=== PATIENT | female | born 1980 | race Caucasian/White ===

== ENCOUNTER 2016-07-24 21:24 | Emergency (ER) | payer MEDICAID, OTHER ==
[~2016-07-24] VITALS: Ht 162.6 cm; Wt 63.5 kg
[2016-07-24 21:24] VITALS: BP 138/78
[2016-07-25] MEDS ORDERED: AUGM875T27 PO (21:25)
[2016-07-25] MEDS ORDERED: FLON1SPR (21:25)
[2016-07-25] MEDS ORDERED: MUCI600T34 PO (21:25)
[2016-07-25] MEDS ORDERED: IBUP600T26 PO (21:25)
== END 2016-07-25 01:20 | disposition left against medical advice (07) ==
LOC: M ED 07-25 00:14
DX: R68.89 Other general symptoms and signs (principal); Z53.21 Procedure and treatment not carried out due to patient leaving prior to being seen by health care provider

== ENCOUNTER 2016-07-25 19:47 | Emergency (ER) | payer MEDICAID ==
[~2016-07-25] VITALS: Ht 162.6 cm; Wt 65.8 kg
[2016-07-25] MEDS ORDERED: AUGM875T27 PO (21:25)
[2016-07-25] MEDS ORDERED: FLON1SPR (21:25)
[2016-07-25] MEDS ORDERED: IBUP600T26 PO (21:25)
[2016-07-25] MEDS ORDERED: MUCI600T34 PO (21:25)
[2016-07-25] MEDS ORDERED: IBUPROFEN 600 MG TAB PO ONE (21:30)
[2016-07-25] MEDS ORDERED: AUGMENTIN 875 MG TAB PO ONE (21:30)
[2016-07-25 21:34] VITALS: BP 123/56
== END 2016-07-25 21:35 | disposition home or self-care (01) ==
LOC: M ED 20:55
DX: J01.00 Acute maxillary sinusitis, unspecified (principal); F17.200 Nicotine dependence, unspecified, uncomplicated

== ENCOUNTER 2017-08-10 18:25 | Emergency (ER) | payer SELFPAY, MEDICAID | END 2017-08-10 20:45 | disposition home or self-care (01) | LOC: M ED 18:25 | DX: R60.0 Localized edema (principal); S70.12XA Contusion of left thigh, initial encounter; X58.XXXA Exposure to other specified factors, initial encounter; Y92.89 Other specified places as the place of occurrence of the external cause; Z91.81 History of falling; F17.210 Nicotine dependence, cigarettes, uncomplicated; Z88.5 Allergy status to narcotic agent | CPT/HCPCS: 73552 ==

== ENCOUNTER 2018-04-17 19:12 | Emergency (ER) | payer MEDICAID, OTHER, SELFPAY ==
[~2018-04-17] VITALS: Ht 162.6 cm; Wt 61.2 kg
[~2018-04-17 19:12] MED LIST: AUGM875T28 PO; FLON1SPR; IBUP-1022 PO; MUCI600T37 PO
[2018-04-17] MEDS ORDERED: KETOROLAC 30 MG/ML VIAL (J1885) IV ONE (20:15)
[2018-04-17 20:49] LABS: BASO % 0.2 % (0.0-1.0); EOS # 0.1 10^3/uL (0.0-0.50); EOS % 1.4 % (0.0-3.0); HEMATOCRIT 42.3 % (36.0-47.0); HEMOGLOBIN 14.7 g/dl (12.0-15.5); LYMPH # 2.5 10^3/uL (1.5-4.5); LYMPH % 30.5 % (24.0-44.0); MEAN CORPUSCULAR HEMOGLOBIN 33.3 pg (27.0-33.0); MEAN CORPUSCULAR HGB CONC 34.8 g/dl (32.0-36.5); MEAN CORPUSCULAR VOLUME 95.9 fl (80.0-96.0); MONO # 0.4 10^3/uL (0.0-0.8); MONO % 5.3 % (0.0-5.0); NEUTROPHILS # 5.2 10^3/uL (1.8-7.7); NEUTROPHILS % 62.2 % (36.0-66.0); PLATELET COUNT, AUTOMATED 253 10^3/uL (150-450); RED BLOOD COUNT 4.41 10^6/uL (4.00-5.40); WHITE BLOOD COUNT 8.3 10^3/uL (4.0-10.0)
[2018-04-17 21:08] LABS: BLOOD UREA NITROGEN 4 MG/DL (7-18); CALCIUM LEVEL 8.9 MG/DL (8.5-10.1); CARBON DIOXIDE LEVEL 28 MEQ/L (21-32); CHLORIDE LEVEL 107 MEQ/L (98-107); CREATININE FOR GFR 0.59 MG/DL (0.55-1.30); GLOMERULAR FILTRATION RATE > 60.0 (>60); GLUCOSE, FASTING 82 MG/DL (70-100); SODIUM LEVEL 139 MEQ/L (136-145)
[2018-04-17] MEDS ORDERED: KETO10TAB PO (23:27)
[2018-04-17 23:52] VITALS: BP 119/79
--- NOTE | 2018-04-18 08:27 | REP ---
Pelvic sonography: Repeat dictation. Preliminary report is provided by [facility]. History: Left pelvic pain. Findings: Transabdominal and transvaginal scanning is performed. Uterine dimensions are normal at 7.1 x 4.5 x 5.7 cm. Endometrial echo is 0.8 cm thick. Uterus is somewhat retroverted. There is a small quantity of cul-de-sac fluid. A normal right ovary is seen with measurements of 3.2 x 1.6 x 1.7 cm. Its Doppler flow is normal. Resistive index of 0.60. The left ovary measures 5.1 x 2.3 x 3.1 cm. Its Doppler flow is normal, resistive index is 0.56. There are two septated cysts in the left ovary, the largest of which measures 2.0 cm. This contains a thin septation. These are compatible with follicle cysts. Impression: Somewhat retroverted uterus. No significant morphologic abnormality. Electronically Signed by Remi Christopher MD 04/18/2018 01:25 P
== END 2018-04-18 | disposition home or self-care (01) ==
LOC: M ED 19:12
DX: N83.202 Unspecified ovarian cyst, left side (principal)
CPT/HCPCS: 76830; 76856; 80048; 81001; 81025; 85025; 93976; 99284; J1885

== ENCOUNTER 2018-06-19 12:12 | Day surgery (SDC) | payer OTHER ==
[2018-06-19] VITALS (7 sets, daily range): BP systolic 115–131; BP diastolic 71–82
[~2018-06-19] VITALS: Ht 162.6 cm; Wt 61.0 kg
[~2018-06-19 12:12] MED LIST changes: +KETO10TAB PO; +LR 1,000 ML IV ONE; +NICO21DI31; +STOO100C PO; +SUBO8MIS PO; +VENL37.598
[2018-06-19 12:38] LABS: HEMATOCRIT 46.3 % (36.0-47.0); HEMOGLOBIN 15.9 g/dl (12.0-15.5); MEAN CORPUSCULAR HEMOGLOBIN 33.5 pg (27.0-33.0); MEAN CORPUSCULAR HGB CONC 34.3 g/dl (32.0-36.5); MEAN CORPUSCULAR VOLUME 97.5 fl (80.0-96.0); PLATELET COUNT, AUTOMATED 324 10^3/uL (150-450); RED BLOOD COUNT 4.75 10^6/uL (4.00-5.40); WHITE BLOOD COUNT 9.6 10^3/uL (4.0-10.0)
[2018-06-19] MEDS ORDERED: SCOPOLAMINE 1MG TRANSDERMAL PATCH As Ordered ONE (13:35)
[2018-06-19] MEDS ORDERED: SCOPOLAMINE 1MG TRANSDERMAL PATCH TOP ONE (13:45)
[2018-06-19] MEDS ORDERED: BUPIVACAINE HCL 0.25% 10 ML VIAL As Ordered ONE (13:47)
[2018-06-19] MEDS ORDERED: METHYLENE BLUE 0.5% (5MG/ML) 10 ML AMP (PROVAYBLUE)(Q9968 PER 1MG) As Ordered ONE (13:47)
[2018-06-19] MEDS: fentaNYL 100 MCG/2 ML INJECTION (J3010) IV PRN ×4 (14:09→16:28)
[2018-06-19] MEDS ORDERED: MIDAZOLAM INJ 2 MG/2 ML VIAL (J2250) As Ordered ONE (14:46)
[2018-06-19] MEDS ORDERED: dexameTHASONE 4 MG/ML 1ML VIAL (J1100) As Ordered ONE (14:46)
[2018-06-19] MEDS ORDERED: LIDOCAINE 2% INJ 100 MG/5 ML SDV (FOR ANES.) As Ordered ONE (14:46)
[2018-06-19] MEDS ORDERED: ONDANSETRON 4MG/2ML VIAL (J2405) As Ordered ONE (14:46)
[2018-06-19] MEDS ORDERED: METOCLOPRAMIDE INJ 10MG/2ML VIAL (J2765) As Ordered ONE (14:46)
[2018-06-19] MEDS ORDERED: PROPOFOL 200 MG/20 ML VIAL As Ordered ONE (14:46)
[2018-06-19] MEDS ORDERED: ROCURONIUM BROMIDE 50 MG/5 ML VIAL As Ordered ONE ×2 (14:46→14:53)
[2018-06-19] MEDS ORDERED: KETOROLAC 60 MG/2 ML VIAL (J1885) As Ordered ONE (14:46)
[2018-06-19] MEDS ORDERED: fentaNYL 250 MCG/5 ML INJECTION (J3010) As Ordered ONE (14:46)
[2018-06-19] MEDS ORDERED: SUGAMMADEX SODIUM 500 MG/5 ML VIAL (BRIDION) As Ordered ONE (14:46)
[2018-06-19] MEDS ORDERED: HYDROmorphone HCL 2 MG/ML 1ML VIAL (J1170) As Ordered ONE (14:58)
[2018-06-19] MEDS ORDERED: ACETAMINOPHEN 1000MG 100ML IV BTL (OFIRMEV) (J0131 PER 10MG) As Ordered ONE (15:40)
[2018-06-19] MEDS ORDERED: LR 1,000 ML IV SCH ×2 (16:15→16:30)
[2018-06-19] MEDS ORDERED: fentaNYL 100 MCG/2 ML INJECTION (J3010) As Ordered ONE (16:15)
[2018-06-19] MEDS ORDERED: ONDANSETRON 4MG/2ML VIAL (J2405) IV PRN (16:30)
--- NOTE | 2018-06-19 16:57 | RO ---
DATE OF PROCEDURE: 06/19/2018 PREPROCEDURE DIAGNOSIS: Pelvic pain, menorrhagia. POSTPROCEDURE DIAGNOSIS: Pelvic pain, menorrhagia. OPERATIVE PROCEDURES: Robotic assisted laparoscopic hysterectomy, left salpingo-oophorectomy, cystoscopy. SURGEON: Jeremie Shirley MD B[employer] CELL[employer] HELPER MACHINE: Lisa Herrera NP ANESTHESIA: General endotracheal. ESTIMATED BLOOD LOSS: 100 mL URINE OUTPUT: 100 mL FINDINGS: Normal uterus, fallopian tubes and ovaries. Evidence of prior tubal sterilization. Normal upper abdomen. OPERATIVE SUMMARY: Patient taken to the operating room where general endotracheal anesthesia was induced. She was prepped and draped in a sterile fashion in the dorsal lithotomy position. A [place] catheter was placed. A VCare unit manipulator was placed. Periumbilical incision was made with a scalpel. A Veress needle was placed through this incision while tenting up on the skin of the abdomen. Intraabdominal location of the Veress needle was assessed using saline filled syringe. Pneumoperitoneum was created. The Veress needle was removed. An 8 mm trocar using [employer] was inserted through this incision. Three 8 mm suprapubic ports were placed under direct visualization. The patient was placed in Trendelenburg position. The Da Ingrid robot was docked to the ports. Using the fenestrated bipolar and the Vessel Sealer the left IP ligament was grasped, coagulated and incised. Broad ligament attachments to the ovary were incised. The round ligament was coagulated and incised. The anterior and posterior leaves of the broad ligament were . On the right side, the uteroovarian ligaments, fallopian tube, round ligaments were coagulated and incised and a bladder flap was extended. Uterine vessels were coagulated and incised bilaterally. Using the monopolar Endo Akash a colpotomy was created in the upper vagina at the level of the VCare cup. This was extended circumferentially around the upper vagina. Specimen including the uterus, cervix, left fallopian tube and ovary was removed through the vagina. The vaginal cuff was closed with #1 V-Loc suture in a running fashion. The pelvis was irrigated with good hemostasis noted. The patient received methylene blue dye intravenously. Cystoscopy was performed using a 70 degrees cystoscope. Bilateral ureteral jets were identified. There was no evidence of injury to the bladder. Cystoscope was removed. All laparoscopic ports were removed. The skin was closed with #4-0 Monocryl subcuticular sutures. Sponge, instrument and needle counts were correct. Lisa Herrera NP assisted with all aspects of the procedure from beginning to end. She helped position the patient, insert the ports, manipulate the uterus throughout the procedure, remove the specimen at the end of the procedure. She helped with closure of all ports.
[2018-06-19] MEDS ORDERED: SUBO8MIS SL (18:17)
[2018-06-19] MEDS ORDERED: MORPHINE 4 MG/ML 1ML VIAL/SYRINGE (J2270) IV PRN (18:30)
[2018-06-19] MEDS: ACETAMINOPHEN 500 MG TAB PO PRN (18:34)
[2018-06-19] MEDS: DOCUSATE SODIUM 100 MG CAP PO SCH (20:28)
[2018-06-19] MEDS ORDERED: BUPRENORPHINE/NALOXONE 2-0.5MG SUBLINGUAL TABLET(SUBOXONE) SL SCH (21:00)
[2018-06-19] MEDS ORDERED: KETOROLAC 30 MG/ML VIAL (J1885) IV PRN (22:00)
[2018-06-20 02:00] VITALS: BP 112/60
[2018-06-20 06:00] VITALS: BP 118/62
[2018-06-20] MEDS ORDERED: BUPRENORPHINE/NALOXONE 8-2MG SUBLINGUAL TABLET(SUBOXONE) SL SCH (09:00)
[2018-06-20] MEDS: ACETAMINOPHEN 500 MG TAB PO PRN (09:13)
[2018-06-20] MEDS: DOCUSATE SODIUM 100 MG CAP PO SCH (09:13)
[2018-06-20] MEDS ORDERED: ACET-683 PO (10:15)
== END 2018-06-20 11:20 | disposition home or self-care (01) ==
LOC: M SDC 12:12 → M MS5PR 17:10 → M SDC 06-20 11:20
PROVIDERS: ATTEND Specialist
DX: N83.202 Unspecified ovarian cyst, left side (principal); R10.2 Pelvic and perineal pain; N94.10 Unspecified dyspareunia; F17.210 Nicotine dependence, cigarettes, uncomplicated; K59.00 Constipation, unspecified; Z88.6 Allergy status to analgesic agent
CPT/HCPCS: 36415; 58571; 85027; 86850; 86900; 86901; 88309; 96374; J0131; J0690; J1100; J1170; J1885; J2250; J2405; J2765; J3010; Q9968

== ENCOUNTER → 2018-08-23 | Outpatient (CLI) | payer OTHER ==
[~2018-08-23] MED LIST changes: +ACET-683 PO; -LR 1,000 ML IV ONE; +SUBO8MIS SL
[2018-08-23 07:40] LABS: IONIZED CALCIUM 4.5 MG/DL (4.5-5.3)
[2018-08-23 08:06] LABS: CALCIUM LEVEL 8.2 MG/DL (8.5-10.1)
--- NOTE | 2018-08-23 08:18 | REP ---
CT Head without contrast HISTORY: Headache COMPARISON: 11/25/2010 There is no intraparenchymal hemorrhage, acute infarct, mass or midline shift. The ventricular system is normal in appearance. There is no extra cerebral collection. There is no fracture. The visualized sinuses are clear. IMPRESSION: There is no intracranial lesion. Electronically Signed by Jeremie Gasca MD 08/23/2018 08:10 A
[2018-08-23 10:50] LABS: PTH INTACT 72.4 PG/ML (18.5-88.0)
[2018-08-23 11:48] LABS: TOTAL 25(OH) VITAMIN D 21.8 NG/ML (30.0-100.0)
== END ==
LOC: M RAD 07:17
PROVIDERS: ATTEND Family Medicine
DX: E83.51 Hypocalcemia (principal)

== ENCOUNTER → 2020-03-18 | Outpatient (CLI) | payer MEDICAID ==
[~2020-03-18] MED LIST changes: +MM S100C PO; +NICO1DIS12; -NICO21DI31; -STOO100C PO
== END ==
LOC: M OUTALCOH 07:41
PROVIDERS: ATTEND Psychiatry & Neurology Addiction Medicine
DX: F15.20 Other stimulant dependence, uncomplicated (principal)

== ENCOUNTER 2020-03-24 14:00 | Outpatient (RCR) | payer MEDICAID | END 2020-04-11 | LOC: M OUTALCOH 14:00 | PROVIDERS: ATTEND Psychiatry & Neurology Addiction Medicine | DX: F15.20 Other stimulant dependence, uncomplicated (principal); F17.200 Nicotine dependence, unspecified, uncomplicated ==

== ENCOUNTER 2023-04-25 20:16 | Emergency (ER) | payer MEDICAID, SELFPAY ==
[~2023-04-25] VITALS: Ht 165.1 cm; Wt 91.1 kg
[2023-04-25 22:17] VITALS: BP 171/85; TEMP 97.1; O2SAT 99
== END 2023-04-25 23:59 | disposition left against medical advice (07) ==
LOC: M ED 20:16
DX: Z53.21 Procedure and treatment not carried out due to patient leaving prior to being seen by health care provider (principal)

== ENCOUNTER 2023-05-16 17:27 | Emergency (ER) | payer SELFPAY ==
[~2023-05-16] VITALS: Ht 160 cm; Wt 90.6 kg
[2023-05-16 17:30] VITALS: BP 156/82; TEMP 98.5; O2SAT 99
== END 2023-05-16 21:23 | disposition left against medical advice (07) ==
LOC: M ED 17:27
DX: Z53.21 Procedure and treatment not carried out due to patient leaving prior to being seen by health care provider (principal)

== ENCOUNTER → 2024-10-09 | Outpatient (CLI) | payer MEDICARE, OTHER ==
[2024-10-09 13:58] LABS: BASO # 0.0 10^3/uL (0.0-0.2); BASO % 0.2 % (0.0-1.0); EOS # 0.2 10^3/uL (0.0-0.5); EOS % 1.9 % (0.0-3.0); LYMPH # 2.5 10^3/uL (1.5-5.0); LYMPH % 22.7 % (24.0-44.0); MONO # 0.5 10^3/uL (0.0-0.8); MONO % 4.9 % (2.0-8.0); NEUTROPHILS # 7.7 10^3/uL (1.5-8.5); NEUTROPHILS % 69.7 % (36.0-66.0); PLATELET COUNT, AUTOMATED 239 10^3/uL (150-450)
[2024-10-09 14:06] LABS: ALT/SGPT 32 U/L (7.0-40); AST/SGOT 28 U/L (<34); CALCIUM LEVEL 8.7 MG/DL (8.5-10.1); CARBON DIOXIDE LEVEL 29 MMOL/L (20-31); CHLORIDE LEVEL 104 MMOL/L (98-107); CHOLESTEROL LEVEL 194 MG/DL (<200); CHOLESTEROL RISK RATIO 7.57 (<5); CREATININE FOR GFR 0.57 MG/DL (0.55-1.30); GLOMERULAR FILTRATION RATE > 90.0 (>58); LDL CHOLESTEROL 123.6 MG/DL (<100); NON-HDL-C 168.4 MG/DL; POTASSIUM SERUM 4.2 MMOL/L (3.5-5.1); SODIUM LEVEL 141 MMOL/L (136-145); TRIGLYCERIDES LEVEL 224 MG/DL (<150)
[2024-10-09 14:08] LABS: FREE T4 1.22 NG/DL (0.89-1.76)
[2024-10-09 15:18] LABS: ESTIMATED AVERAGE GLUCOSE 117.0 MG/DL (60-110)
== END ==
LOC: M PLALAB 09:32
PROVIDERS: ATTEND Physician Assistant
DX: I10 Essential (primary) hypertension (principal); K43.9 Ventral hernia without obstruction or gangrene; R60.0 Localized edema; R06.09 Other forms of dyspnea; R94.31 Abnormal electrocardiogram [ECG] [EKG]; F17.210 Nicotine dependence, cigarettes, uncomplicated

== ENCOUNTER → 2024-11-04 | Outpatient (CLI) | payer OTHER ==
[~2024-11-04] MED LIST changes: -IBUP-1022 PO; +IBUP600T42 PO
== END ==
LOC: M RAD 15:11
PROVIDERS: ATTEND Surgery
DX: K43.9 Ventral hernia without obstruction or gangrene (principal); K76.0 Fatty (change of) liver, not elsewhere classified

== ENCOUNTER → 2025-02-23 | Outpatient (CLI) | payer OTHER ==
[2025-02-23 17:02] LABS: BASO # 0.0 10^3/uL (0.0-0.2); BASO % 0.3 % (0.0-1.0); EOS # 0.2 10^3/uL (0.0-0.5); EOS % 1.5 % (0.0-3.0); LYMPH # 3.0 10^3/uL (1.5-5.0); LYMPH % 27.1 % (24.0-44.0); MONO # 0.6 10^3/uL (0.0-0.8); MONO % 5.0 % (2.0-8.0); NEUTROPHILS # 7.3 10^3/uL (1.5-8.5); NEUTROPHILS % 65.8 % (36.0-66.0); PLATELET COUNT, AUTOMATED 254 10^3/uL (150-450)
[2025-02-23 17:10] LABS: CALCIUM LEVEL 9.1 MG/DL (8.5-10.1); CARBON DIOXIDE LEVEL 28 MMOL/L (20-31); CHLORIDE LEVEL 104 MMOL/L (98-107); CREATININE FOR GFR 0.65 MG/DL (0.55-1.30); GLOMERULAR FILTRATION RATE > 90.0 (>58); POTASSIUM SERUM 4.0 MMOL/L (3.5-5.1); SODIUM LEVEL 141 MMOL/L (136-145)
== END ==
LOC: M PLALAB 14:06
PROVIDERS: ATTEND Internal Medicine Cardiovascular Disease
DX: R07.89 Other chest pain (principal); R06.02 Shortness of breath; R94.39 Abnormal result of other cardiovascular function study